=== PATIENT | male | born 1980 | race Caucasian/White ===

== ENCOUNTER → 2016-07-05 | Day surgery (SDC) | payer BC, OTHER ==
--- NOTE | 2016-06-16 08:26 | HP ---
PREOPERATIVE HISTORY AND PHYSICAL EXAM: DATE OF ADMISSION/SURGERY: 07/05/16 [facility] DATE OF OFFICE VISIT/ENCOUNTER: 06/15/16 ATTENDING SURGEON: Natalia Vaughn MD (dictated by KOSTAS Pineda) PROCEDURE: Right small finger mallet repair. CHIEF COMPLAINT: Right small finger mallet deformity. HISTORY OF PRESENT ILLNESS: This is a 36-year-old male who suffered injury to his right small finger on 03/23/16. He was treated conservatively with splinting and did well with that throughout the course of splinting. Unfortunately, when he eventually removed the splint per plan, the mallet finger recurred. He has not been able to actively extend his finger at the DIP joint since then. Dr. Vaughn is recommending surgical intervention at this time in the form of a right small finger mallet repair and the patient has consented to proceed. PAST MEDICAL HISTORY: Unremarkable. PAST SURGICAL HISTORY: 1. Left middle finger cyst removed. 2. Appendectomy. MEDICATIONS: None. ALLERGIES: None. FAMILY MEDICAL HISTORY: None. 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 He denies tobacco use. He denies illicit drug use. He does report alcohol and take on a regular occasion. REVIEW OF SYSTEMS: General: Negative for fevers, chills, or night sweats. No known anesthesia problems. HEENT: Negative for headache, lightheadedness, or syncopal episodes. Integumentary: Negative for abrasions, lesions, or open wounds. Cardiothoracic: Negative for chest pain, palpitations or edema. Negative for hypertension. Pulmonary: Negative for shortness of breath with exertion, chronic cough, or COPD. GI: Negative for nausea, vomiting, diarrhea , constipation, or GERD. : Negative for nocturia, urinary frequency, urgency , history of UTIs, or kidney problems. Musculoskeletal: Positive for current complaint. Negative for chronic or intermittent back pain or history of fractures. Neurological: Negative for paresthesias, numbness, history of seizures, stroke, or epilepsy. Endocrine: Negative for diabetes or thyroid issues. Hematological: Negative for easy bruising, anemia, excessive bleeding, or history of DVT. Infectious Disease: Negative for history of MRSA, hepatitis C, or HIV. PHYSICAL EXAMINATION GENERAL: Well-developed, well-nourished, 36-year-old male, in no acute distress. VITAL SIGNS: Height 5 feet 3 inches, weight 154 pounds, pulse 57, blood pressure 122/82. HEENT: Normocephalic, atraumatic. Pupils are equal, round, and reactive to light and accommodation. Extraocular movements are intact. NECK: Supple. No palpable lymph nodes. Throat is clear. PULMONARY: Lungs are clear to auscultation bilaterally. No wheezes, rales, or rhonchi. CARDIOTHORACIC: Regular rate and rhythm. S1 and S2. No murmurs, rubs, or gallops. No edema. ABDOMEN: Positive bowel sounds, soft, and nontender. MUSCULOSKELETAL: On exam of his right small finger, there is tenderness to palpation at the dorsal aspect of the DIP joint and about a 30-degree extensor lag. Passively, it is correctible, but actively, the patient is unable to extend the DIP joint. His neurovascular function is intact. Skin is intact. NEUROLOGICAL: Alert and oriented x3. Cranial nerves II through XII are intact. Sensation is intact to light touch. IMPRESSION: Recurrent right mallet finger after 2 months of splinting. PLAN: The patient is scheduled to undergo a right small finger mallet repair with Dr. Vaughn on 07/05/16. He will return to the office 10 to 14 days postop for followup and suture removal. A prescription for Sal[place] was e-scribed to the patient's pharmacy for postoperative pain management. KOSTAS PINEDA [id number]/[facility] #: [id number] MEHUL
[~2016-07-05] MED LIST: Buffered Lidocaine 1% SYR 3ML* 3 ML/SYR SYRINGE INTRADERM ONE; Buffered Lidocaine 1% SYR 3ML* 3 ML/SYR SYRINGE ONE; Lidocaine 1% INJ* 10 MG/ML 30 ML SDV ONE; Midazolam* 1 MG/ML 2 ML VIAL (2 MG) ONE; ceFAZolin 2 GM PREMIX (*) 2 GM/50 ML BAG IVPB ONE; fentaNYL* 50 MCG/ML 2 ML VIAL (100 MCG VIAL) ONE
[2016-07-05 08:34] VITALS: BP 110/65
--- NOTE | 2016-07-06 02:08 | OP ---
DATE OF OPERATION: 07/05/16 [facility] DATE OF : 84 SURGEON: Dr. Vaughn. TECHNICIAN BIOLOGICAL HEALTH: KOSTAS Pineda ANESTHESIOLOGIST: Arturo Serra DO ANESTHESIA: Local MAC. PRE-OP DIAGNOSIS: Right small finger mallet finger. POST-OP DIAGNOSIS: Right small finger mallet finger. OPERATIVE PROCEDURE: Mallet finger repair, right small finger. ESTIMATED BLOOD LOSS: Zero. TOURNIQUET TIME: About 30 minutes. INDICATIONS FOR PROCEDURE: Cristi is a 36-year-old male who had a mallet finger. He was treated with immobilization and extension for 8 weeks, but when he started with range of motion, he developed extensor lag. He presents for mallet finger repair. DESCRIPTION OF PROCEDURE: The patient was brought to the operating room, was given a sedation anesthetic, and a digital block with 10 cc of 1% plain lidocaine. The skin of his right upper extremity was prepped and draped in the usual sterile fashion. The hand and forearm were exsanguinated and the tourniquet elevated to 250 mmHg. An H-shaped incision was made on the dorsal aspect of the DIP joint of the right small finger. We elevated the skin flaps over the tendon. The joint was then held in slight hyperextension and pinned with two 0.035 inch K-wires. The extensor tendon was then incised diagonally and repaired back to itself taking up the extra tendon with a 4-0 Monocryl suture. The wound was irrigated and skin edges were reapproximated with 4-0 nylon suture. The wound was dressed with Xeroform, 4x4, Webril, and an AlumaFoam splint. The patient tolerated the procedure well and was brought to the recovery room in good condition. [id number]/[facility] #: [id number] [facility] HOSPITALJosh
--- NOTE | 2016-07-06 11:46 | RAD ---
INDICATION: Trauma and deformity and pain to the fifth digit of the right hand COMPARISONS: March 25, 2016 TECHNIQUE: Fluoroscopy was provided for a surgical procedure. Total fluoroscopy time is: 23 seconds FINDINGS: Spot images demonstrate percutaneous fixation of the fifth digit IMPRESSION: FLUOROSCOPY WAS PROVIDED FOR A SURGICAL PROCEDURE CPT II Codes: 6045F
== END | disposition home or self-care (01) ==
LOC: OREAST 06:35
PROVIDERS: ATTEND Orthopaedic Surgery
DX: M20.011 Mallet finger of right finger(s) (principal)
CPT/HCPCS: 76000; C1776; J0690; J2250; J3010

== ENCOUNTER 2016-08-13 11:06 | Emergency (ER) | payer BC ==
[2016-08-13 11:20] VITALS: BP 141/80
--- NOTE | 2016-08-13 12:14 | ED ---
Lower Extremity - HPI Summary HPI Summary: Was kicked in the left monge while playing soccer two weeks ago. States that it had bruised and became swollen after the injury. Last Monday, the skin on his skin had reddened, became firm and is painful to touch. His foot is more swollen then previously. - History of Current Complaint Chief Complaint: UCLowerExtremity Stated Complaint: LEG COMPLAINT Time Seen by Provider: 08/13/16 11:45 Hx Obtained From: Patient Mechanism Of Injury: Blunt Trauma Onset of Pain: Immediate Onset/Duration: Weeks - Painful at time of injury, swollen and bruised for a week. Last week, reddened and swollen. Severity Initially: Mild Severity Currently: Mild Associated Signs And Symptoms: Positive: Swelling, Redness, Bruising. Negative : Fever, Weakness Able to Bear Weight: Yes - Allergies/Home Medications Allergies/Adverse Reactions: Allergies Allergy/AdvReac Type Severity Reaction Status Date / Time No Known Allergies Allergy Verified 07/05/16 06:48 PMH/Surg Hx/FS Hx/Imm Hx Previously Healthy: Yes Endocrine/Hematology History: Denies: Hx Diabetes, Hx Thyroid Disease Cardiovascular History: Denies: Hx Hypertension Respiratory History: Denies: Hx Asthma, Hx Chronic Obstructive Pulmonary Disease (COPD) GI History: Reports: Other GI Disorders - SURGERY FOR APPENDECTOMY- WITH FOLLOWING SURGERIES-12/2004 Denies: Hx Ulcer Sensory History: Denies: Hx Contacts or Glasses, Hx Hearing Aid Opthamlomology History: Denies: Hx Contacts or Glasses - Surgical History Surgery Procedure, Year, and Place: appendectomy 2004-[place]. 2 EXPLORATORY ABDOMINAL [id number]. FINGER SURGERY -2010 Hx Anesthesia Reactions: No Infectious Disease History: No Infectious Disease History: Denies: Hx Clostridium Difficile, Hx Hepatitis, Hx Human Immunodeficiency Virus (HIV), Hx of Known/Suspected MRSA, Hx Shingles, Hx Tuberculosis, Hx Known/ Suspected VRE, Hx Known/Suspected VRSA, History Other Infectious Disease, Traveled Outside the [place] in Last 30 Days - Family History Known Family History: Negative: Hypertension - Social History Occupation: Employed Full-time Lives: With Family Alcohol Use: Daily Alcohol Amount: 1 DAILY Substance Use Type: Reports: None Smoking Status (MU): Never Smoked Tobacco Review of Systems Constitutional: Negative Eyes: Negative ENT: Negative Cardiovascular: Negative Respiratory: Negative Gastrointestinal: Negative Genitourinary: Negative Musculoskeletal: Negative Skin: Other Positive: Other - Redness and firmness on left leg Neurological: Negative Psychological: Normal All Other Systems Reviewed And Are Negative: Yes Physical Exam Triage Information Reviewed: Yes Vital Signs On Initial Exam: Initial Vitals Temp Pulse Resp BP Pulse Ox 97.7 F 50 18 141/80 99 08/13/16 11:15 08/13/16 11:15 08/13/16 11:15 08/13/16 11:15 08/13/16 11:15 Vital Signs Reviewed: Yes Appearance: Positive: Well-Appearing, No Pain Distress, Well-Nourished Skin: Positive: Warm, Dry, Tender - Tenderness on palpation of left lateral monge. Firm, erythematous and warm to the touch., Erythema @ - left lateral monge Eyes: Positive: Normal, Conjunctiva Clear ENT: Positive: Normal ENT inspection, Pharynx normal Respiratory/Lung Sounds: Positive: Clear to Auscultation Cardiovascular: Positive: Normal, RRR Musculoskeletal: Positive: Normal, Strength/ROM Intact Neurological: Positive: Normal Psychiatric: Positive: Normal, Affect/Mood Appropriate Diagnostics - Vital Signs Vital Signs Temp Pulse Resp BP Pulse Ox 08/13/16 11:15 97.7 F 50 18 141/80 99 - Laboratory Lab Statement: Any lab studies that have been ordered have been reviewed, and results considered in the medical decision making process. Lower Extremity Course/Dx - Course Course Of Treatment: This is most likely a cellulitis. We will treat with a 7- day course of Bactrim. He is to take two pills when he gets the prescription filled, and take a dose before bed tonight. He is encouraged to elevate his leg at rest and wear a compression stocking if he is to be on his feet for extended periods of time. - Diagnoses Differential Diagnosis/HQI/PQRI: Positive: Cellulitis, Contusion, Phlebitis Provider Diagnoses: Cellulitis of left lower leg Discharge - Discharge Plan Condition: Stable Disposition: HOME Prescriptions: Sulfamethox/Trimethoprim DS* [Bactrim DS 800/160 TAB*] 1 tab PO BID #14 tab Patient Education Materials: Cellulitis (ED), Hypertension (ED) Print Language: OCCITAN Referrals: Breezy Liang MD [Primary Care Provider] - Additional Instructions: This is most likely a cellulitis of the leg. When the antibiotic is filled, take two pills to start. Take a second dose before bed tonight, then take as directed. Elevate your leg at rest. If expecting to be on your feet for any prolonged time, wear a compression stocking. If symptoms worsen please call or follow-up with your doctor. Please see your primary care provider within a month about your elevated blood pressure.
== END 2016-08-13 12:35 | disposition home or self-care (01) ==
LOC: UCEAST 11:06
DX: L03.116 Cellulitis of left lower limb (principal)
CPT/HCPCS: 99212; G0463

== ENCOUNTER 2024-02-16 12:49 | Inpatient (IN) ==
[2024-02-16 14:21] LABS: ABS Basophils 0.1 10^3/uL (0.0-0.1); ABS Eosinophils 0.1 10^3/uL (0.0-0.5); ABS Lymphocytes 2.1 10^3/uL (1.0-4.8); ABS Monocytes 0.4 10^3/uL (0.0-1.1); ABS Neutrophils 6.1 10^3/uL (1.5-7.6); Eosinophil % 0.7 %; Hematocrit 41.5 % (38-53); Hemoglobin 14.1 g/dL (13.2-16.3); Lymphocyte % 23.9 %; Mean Corpuscular Hemoglobin 30.1 pg (27-33); Mean Corpuscular Volume 88.5 fL (80-97); Mean Platelet Volume 8.1 fL (7.5-11.2); Platelet Count 228 10^3/uL (150-450); Red Blood Count 4.69 10^6/uL (4.06-5.63); Red Cell Distribution Width 13.7 % (12-17); White Blood Count 8.7 10^3/uL (3.6-10.2)
[2024-02-16 15:38] LABS: Albumin 4.3 g/dL (3.2-5.2); Albumin/Globulin Ratio 2.3 (1-3); C Reactive Protein 1.15 mg/L (<8.01); Calcium 9.5 mg/dL (8.6-10.3); Creatinine, Serum 1.06 mg/dL (0.67-1.17); Globulin 1.9 g/dL (2-4); Potassium 3.9 mmol/L (3.5-5.0); Total Bilirubin 0.8 mg/dL (0.2-1.0); Total Protein 6.2 g/dL (6.4-8.9); eGFR CKD-EPI 90.4 (>60)
[2024-02-16 15:57] LABS: Urine Appearance Clear; Urine Bilirubin Negative (Negative); Urine Blood Negative (Negative); Urine Color Light-Yellow; Urine Glucose Negative (Negative); Urine Ketones Negative (Negative); Urine Nitrite Negative (Negative); Urine Protein Negative (Negative); Urine Urobilinogen Negative (Negative); Urine pH 6.5 (5.0-8.0)
[2024-02-16] MEDS: Iohexol 300 (CONTRAST) 10 ML SDV IV ONE (16:48)
[2024-02-16] MEDS: Lactated Ringers 1000 ml BAG 1,000 ML IV ONE (18:48)
[2024-02-16] MEDS: Lactated Ringers 1000 ml BAG 1,000 ML IV SCH (21:18)
[2024-02-17] MEDS: Enoxaparin 40 MG/0.4 ML SYR SUBCUT SCH (00:05)
[2024-02-17] MEDS: Ondansetron 4 mg VIAL 2 MG/ML 2 ml VIAL IV PRN (00:21)
[2024-02-17 06:37] LABS: Hematocrit 39.4 % (38-53); Hemoglobin 13.9 g/dL (13.2-16.3); Mean Corpuscular Hgb Conc 35.3 g/dL (31-36); Mean Corpuscular Volume 87.8 fL (80-97); Mean Platelet Volume 8.2 fL (7.5-11.2); Platelet Count 213 10^3/uL (150-450); Red Blood Count 4.48 10^6/uL (4.06-5.63); Red Cell Distribution Width 13.5 % (12-17); White Blood Count 11.8 10^3/uL (3.6-10.2)
[2024-02-17] MEDS: Lactated Ringers 1000 ml BAG 1,000 ML IV SCH (06:44)
[2024-02-17 07:21] LABS: Calcium 9.3 mg/dL (8.6-10.3); Creatinine, Serum 1.12 mg/dL (0.67-1.17); Magnesium 1.6 mg/dL (1.9-2.7); Potassium 3.9 mmol/L (3.5-5.0); eGFR CKD-EPI 84.6 (>60)
[2024-02-17] MEDS: Acetaminophen IV 1 GM/100ML 1,000 MG/100 ML BAG IV PRN (09:26)
[2024-02-17] MEDS ORDERED: Morphine 2 MG/ML SYRINGE IV PRN (09:37)
[2024-02-17] MEDS ORDERED: Prochlorperazine 5 mg/ml 2 ml VIAL (10 mg) IV PRN (09:46)
[2024-02-17] MEDS: Magnesium Sulfate 2 gm BAG 2 GM/50 ML BAG IVPB ONE (09:54)
[2024-02-17] MEDS: Diatrizoate Meg/Sod(CONTRAST) 30 ML ORAL.SOLN PO ONE (09:54)
[2024-02-17] MEDS: Magnesium Sulfate IV 1GM/100ML 1 GM/100 ML BAG IV ONE (10:57)
[2024-02-17] MEDS: LORazepam 2 mg VIAL 1 ml IV PUSH ONE (12:00)
[2024-02-17] MEDS: Lactated Ringers 1000 ml BAG 1,000 ML IV ONE (12:24)
[2024-02-17] MEDS: D5LR 1000 ml BAG 1,000 ML IV SCH (17:04)
[2024-02-17] MEDS: Phenol 1.4% Throat Spray BTL MT PRN (17:04)
[2024-02-17] MEDS: Acetaminophen IV 1 GM/100ML 1,000 MG/100 ML BAG IV SCH (19:56)
[2024-02-18] MEDS: Heparin 5000 UNITS/ML 1 mL VIAL SUBCUT SCH (01:46)
[2024-02-18 05:51] LABS: ABS Eosinophils 0.2 10^3/uL (0.0-0.5); ABS Lymphocytes 1.9 10^3/uL (1.0-4.8); ABS Monocytes 0.5 10^3/uL (0.0-1.1); ABS Neutrophils 5.1 10^3/uL (1.5-7.6); ABS Nucleated RBC 0.01 10^3/ul; Eosinophil % 2.2 %; Hematocrit 36.7 % (38-53); Hemoglobin 12.6 g/dL (13.2-16.3); Lymphocyte % 25.2 %; Mean Corpuscular Hemoglobin 30.5 pg (27-33); Mean Corpuscular Hgb Conc 34.4 g/dL (31-36); Mean Corpuscular Volume 88.5 fL (80-97); Mean Platelet Volume 8.6 fL (7.5-11.2); Nucleated Red Blood Cells % 0.1 %/100WBC (0.0-0.8); Platelet Count 186 10^3/uL (150-450); Red Blood Count 4.14 10^6/uL (4.06-5.63); Red Cell Distribution Width 13.6 % (12-17); White Blood Count 7.7 10^3/uL (3.6-10.2)
[2024-02-18 06:10] LABS: Calcium 8.2 mg/dL (8.6-10.3); Creatinine, Serum 1.15 mg/dL (0.67-1.17); Potassium 3.8 mmol/L (3.5-5.0)
[2024-02-19 06:19] LABS: Calcium 8.5 mg/dL (8.6-10.3); Creatinine, Serum 1.08 mg/dL (0.67-1.17); Magnesium 1.8 mg/dL (1.9-2.7); Potassium 3.7 mmol/L (3.5-5.0); eGFR CKD-EPI 88.4 (>60)
[2024-02-19] MEDS: Magnesium Sulfate IV 1GM/100ML 1 GM/100 ML BAG IV ONE (08:40)
[2024-02-19 13:20] VITALS: BP 132/84
== END 2024-02-19 14:45 | disposition home or self-care (01) | DRG 247 ==
LOC: ED 12:49 → EDHOLD 12:49 → SUATTDRO 18:54 → SSU 02-17 11:31
PROVIDERS: ADMIT Internal Medicine; ATTEND Hospitalist